=== PATIENT | male | born 1955 | race Caucasian/White ===

== ENCOUNTER 2019-05-02 10:16 | Day surgery (SDC) | payer OTHER ==
[~2019-05-02] VITALS: Ht 182.9 cm; Wt 136.1 kg
[2019-05-02 11:14] VITALS: BP 167/68
[2019-05-02 16:08] VITALS: BP 120/76
== END 2019-05-02 14:45 | disposition home or self-care (01) ==
LOC: DS 10:16 → OR 12:30 → DS 13:00 → OR 13:30 → DS 14:00
DX: M67.431 Ganglion, right wrist (principal); I10 Essential (primary) hypertension; E66.9 Obesity, unspecified; M10.9 Gout, unspecified; G47.30 Sleep apnea, unspecified; Z68.41 Body mass index [BMI] 40.0-44.9, adult; Z88.8 Allergy status to other drugs, medicaments and biological substances; Z79.899 Other long term (current) drug therapy; Z98.890 Other specified postprocedural states
CPT/HCPCS: J0690; J2250; J3010; J3490; J7120